=== PATIENT | female | born 1995 | race Caucasian/White ===

== ENCOUNTER 2019-05-01 07:37 | Outpatient (CLI) | payer OTHER | END 2019-05-01 08:00 | disposition home or self-care (01) | LOC: NUCLEAR 07:37 | DX: E05.80 Other thyrotoxicosis without thyrotoxic crisis or storm (principal) | CPT/HCPCS: 78012; A9531 ==

== ENCOUNTER 2019-05-02 07:20 | Outpatient (CLI) | payer OTHER | END 2019-05-02 08:49 | disposition home or self-care (01) | LOC: NUCLEAR 07:20 | DX: E05.80 Other thyrotoxicosis without thyrotoxic crisis or storm (principal) | CPT/HCPCS: 78013; A9512 ==